=== PATIENT | male | born 1970 | race Hispanic/Latino ===

== ENCOUNTER 2017-08-26 13:23 | Emergency (ER) | payer SELFPAY ==
[~2017-08-26] VITALS: Ht 165.1 cm; Wt 72.6 kg
[~2017-08-26 13:23] MED LIST: DILANTIN100 MG ORAL; TRIPLA; UNOBMED
[2017-08-26 13:42] VITALS: BP 146/98
[2017-08-26 13:50] VITALS: BP 146/98
--- NOTE | 2017-08-27 16:59 | Cardiology Report ---
APPROVED REPORT EKG Measurement Heart [id number] Normal sinus rhythm Normal ECG
--- NOTE | 2017-08-29 20:46 | Emergency Room Report ---
History of Present Illness General Chief Complaint: Seizure Source: Patient, Medical Record Present Illness HPI This is a 47-year-old male brought in by EMS after witnessed seizure. Patient had prior history of seizure disorder. He had previously been on Keppra and Dilantin. Patient is admission for status epilepticus. The patient was noted to have poor compliance with medication regimen.The patient denies any current complaints. Allergies: Coded Allergies: No Known Allergies (Unverified , 01/04/14) Patient History Past Medical History: see triage record Reviewed Nursing Documentation: PMH: Agreed; PSxH: Agreed Nursing Documentation-PMH Past Medical History: No History, Except For Hx Cancer: No Hx Gastrointestinal Problems: No Hx Neurological Problems: Yes Hx Cerebrovascular Accident: Yes - Left sided weakness Hx Seizures: Yes Review of Systems All Other Systems: limited - by poor cooperation Physical Exam Vital Signs Date Time Temp Pulse Resp B/P (MAP) Pulse Ox O2 Delivery O2 Flow Rate FiO2 08/26/17 13:17 98.2 98 16 155/99 99 Room Air 98.2 General Appearance: well appearing, no apparent distress, alert Head: normocephalic, atraumatic ENT: hearing grossly normal, normal voice Neck: full range of motion, supple Respiratory: no respiratory distress, speaking full sentences Cardiovascular #1: regular rate, rhythm, no edema Musculoskeletal: no calf tenderness Neurologic: normal inspection, alert, oriented x3, normal gait, motor weakness - left upper extremity Psychiatric: mood/affect normal Skin: no rash Medical Decision Making Diagnostic Impression: Primary Impression: Seizure Additional Impressions: Epileptic seizure, generalized Scalp hematoma Minor head injury Seizure disorder ER Course Patient presented for seizure. Differential diagnosis included medication noncompliance, cysticercosis, electrolyte abnormality, mass lesion, or cranial hemorrhage. Because of complexity of patient's case laboratory testing and imaging studies were ordered. The patient was noted to have a recent seizure. The patient was noted to have initially been postictal. Patient subsequently was more awake and refused medical care. The patient stated he did not want any laboratories drawn or any anticonvulsants administered. At the time of refusal patient is awake alert and oriented. The patient appears to have capacity for refusal. The patient was advised he could return at any time. Last Vital Signs Date Time Temp Pulse Resp B/P (MAP) Pulse Ox O2 Delivery O2 Flow Rate FiO2 08/26/17 13:50 98.2 70 15 146/98 97 Room Air 98.2 Status: improved Disposition: AGAINST MEDICAL ADVICE Condition: Serious Referrals: NOT CHOSEN [facility]/MD,REFERRING (PCP) Patient Instructions: Seizure, Adult Sohan Garcia Aug 29, 2017 20:46
== END 2017-08-26 14:52 | disposition left against medical advice (07) ==
LOC: EDBD 13:23 → EMR 14:29
DX: G40.409 Other generalized epilepsy and epileptic syndromes, not intractable, without status epilepticus (principal); I69.354 Hemiplegia and hemiparesis following cerebral infarction affecting left non-dominant side; S00.03XA Contusion of scalp, initial encounter; X58.XXXA Exposure to other specified factors, initial encounter; Y92.9 Unspecified place or not applicable
CPT/HCPCS: 93005; 99283

== ENCOUNTER 2019-02-05 12:47 | Emergency (ER) | payer SELFPAY ==
[~2019-02-05] VITALS: Ht 167.6 cm; Wt 72.6 kg
[2019-02-05 13:00] VITALS: BP 128/97
[2019-02-05] MEDS ORDERED: Tetanus/Diptheria/Pertussis IM ONE (13:00)
--- NOTE | 2019-02-05 13:00 | NUR ---
ED Nurse Note: PT brought in by [place]IR from bus stop, pt had seizure activity x 1 witnessed by [employer], unk how long the sz activity was. noted pt with abrasion on top of the head, no bledding at this time. pt AA&ox4, gcs=15, skin warm and dry, resp even and unlabored on RA, -n/v, no urinary incontinence noted. pt states he takes dilantin for seizure. pt sinus estefany on teletypesetter monitor, will cont monitor. sz precaution and aspiration precaution initiated. bs=92 on scene.
--- NOTE | 2019-02-05 13:04 | NUR ---
ED Nurse Note: Patient awake, alert, oriented x 3. Patient refused to get into hospital gown. Seziure pad applied to both side rails. Bed in lowest position .
--- NOTE | 2019-02-05 13:29 | NUR ---
ED Nurse Note: pt off to ct/
[2019-02-05 13:30] LABS: HEMATOCRIT 40.5 % (42.0-52.0); HEMOGLOBIN 14.1 G/DL (14.2-18.0); MEAN CORPUSCULAR VOLUME 100 FL (80-99); PLATELET COUNT 95 K/UL (150-450); RED BLOOD COUNT 4.04 M/UL (4.70-6.10); RED CELL DISTRIBUTION WIDTH 11.7 % (11.6-14.8); WHITE BLOOD COUNT 6.8 K/UL (4.8-10.8)
[2019-02-05 13:52] LABS: ANION GAP 12 mmol/L (5-15); BLOOD UREA NITROGEN 15 mg/dL (7-18); CALCIUM 8.4 MG/DL (8.5-10.1); CARBON DIOXIDE 23 MMOL/L (21-32); CHLORIDE 107 MMOL/L (98-107); CREATININE 1.3 MG/DL (0.55-1.30); POTASSIUM 3.6 MMOL/L (3.5-5.1); SODIUM 141 MMOL/L (136-145)
[2019-02-05 13:56] LABS: ALANINE AMINOTRANSFERASE 27 U/L (12-78); ALBUMIN 3.8 G/DL (3.4-5.0); ALBUMIN/GLOBULIN RATIO 1.1 (1.0-2.7); ALKALINE PHOSPHATASE 114 U/L (46-116); ASPARTATE AMINO TRANSFERASE 20 U/L (15-37); BILIRUBIN,TOTAL 0.4 MG/DL (0.2-1.0)
[2019-02-05 14:00] VITALS: BP 119/63
--- NOTE | 2019-02-05 14:01 | NUR ---
ED Nurse Note: pt back from ct and resting at this time, will cont monitor. pt void by using urinal x1.
[2019-02-05] MEDS ORDERED: Phenytoin 1,000 MG in NS 275 ML IV ONE (14:15)
--- NOTE | 2019-02-05 14:39 | Emergency Room Report ---
History of Present Illness General Chief Complaint: Seizure Source: Patient, Medical Record, EMS (Doe Raya MD) Present Illness HPI 48-year-old male presents ED for evaluation. Status post seizure witnessed on street. Brought in by EMS. Postictal initially but is now becoming more awake alert. History of seizures and takes Dilantin. States he is compliant with the medication. Abrasion to his forehead from the fall. Denies pain. No incontinence. No tongue trauma. Denies drug use. No other aggravating relieving factors. Denies any other associated symptoms (Doe Raya MD) Allergies: Coded Allergies: No Known Allergies (Unverified , 01/04/14) Patient History Past Medical History: CVA/TIA, seizures Pertinent Family History: none Social History: Denies: smoking, alcohol use, drug use Immunizations: UTD Reviewed Nursing Documentation: PMH: Agreed; PSxH: Agreed (Doe Raya MD) Nursing Documentation-PMH Past Medical History: No History, Except For Hx Cancer: No Hx Gastrointestinal Problems: No Hx Neurological Problems: Yes Hx Cerebrovascular Accident: Yes - Left sided weakness Hx Seizures: Yes (Doe Raya MD) Review of Systems All Other Systems: negative except mentioned in HPI (Doe Raya MD) Physical Exam Vital Signs Date Time Temp Pulse Resp B/P (MAP) Pulse Ox O2 Delivery O2 Flow Rate FiO2 02/05/19 12:50 98.1 88 18 142/97 (112) 97 Room Air Sp02 EP Interpretation: reviewed, normal General Appearance: no apparent distress, GCS 15, non-toxic, Postictal Head: normocephalic, other - abrasion to apex of scalp Eyes: bilateral eye normal inspection, bilateral eye PERRL ENT: hearing grossly normal, normal pharynx, no angioedema, normal voice Neck: full range of motion, supple/symm/no masses Respiratory: chest non-tender, lungs clear, normal breath sounds, speaking full sentences Cardiovascular #1: regular rate, rhythm, no edema Cardiovascular #2: 2+ carotid (R), 2+ carotid (L), 2+ radial (R), 2+ radial (L) , 2+ dorsalis pedis (R), 2+ dorsalis pedis (L) Gastrointestinal: normal bowel sounds, non tender, soft, non-distended, no guarding, no rebound Rectal: deferred Genitourinary: normal inspection, no CVA tenderness Musculoskeletal: back normal, gait/station normal, normal range of motion, non- tender Neurologic: alert, oriented x3, responsive, motor strength/tone normal, sensory intact, speech normal Psychiatric: judgement/insight normal, memory normal, mood/affect normal, no suicidal/homicidal ideation Reflexes: 3+ bicep (R), 3+ bicep (L), 3+ tricep (R), 3+ tricep (L), 3+ knee (R) , 3+ knee (L) Lymphatic: no adenopathy (Doe Raya MD) Medical Decision Making Diagnostic Impression: Primary Impression: Seizure Additional Impression: Subtherapeutic serum dilantin level ER Course Patient was endorsed to me by Dr. Raya. Patient was loaded with IV Dilantin. Patient was given prescription for Dilantin. He was noted to be awake alert and oriented. He was able to ambulate. Patient was discharged home. Patient advised to follow-up with his primary care physician and to make sure that he is taking his medications. Laboratory Tests Test 02/05/19 13:21 02/05/19 14:20 White Blood Count 6.8 K/UL (4.8-10.8) Red Blood Count 4.04 M/UL (4.70-6.10) L Hemoglobin 14.1 G/DL (14.2-18.0) L Hematocrit 40.5 % (42.0-52.0) L Mean Corpuscular Volume 100 FL (80-99) H Mean Corpuscular Hemoglobin 34.9 PG (27.0-31.0) H Mean Corpuscular Hemoglobin Concent 34.7 G/DL (32.0-36.0) Red Cell Distribution Width 11.7 % (11.6-14.8) Platelet Count 95 K/UL (150-450) L Mean Platelet Volume 9.5 FL (6.5-10.1) Neutrophils (%) (Auto) % (45.0-75.0) Lymphocytes (%) (Auto) % (20.0-45.0) Monocytes (%) (Auto) % (1.0-10.0) Eosinophils (%) (Auto) % (0.0-3.0) Basophils (%) (Auto) % (0.0-2.0) Differential Total Cells Counted 100 Neutrophils % (Manual) 64 % (45-75) Lymphocytes % (Manual) 26 % (20-45) Monocytes % (Manual) 6 % (1-10) Eosinophils % (Manual) 4 % (0-3) H Basophils % (Manual) 0 % (0-2) Band Neutrophils 0 % (0-8) Platelet Estimate Decreased L Platelet Morphology Normal Red Blood Cell Morphology Normal Macrocytosis Sodium Level 141 MMOL/L (136-145) Potassium Level 3.6 MMOL/L (3.5-5.1) Chloride Level 107 MMOL/L (98-107) Carbon Dioxide Level 23 MMOL/L (21-32) Anion Gap 12 mmol/L (5-15) Blood Urea Nitrogen 15 mg/dL (7-18) Creatinine 1.3 MG/DL (0.55-1.30) Estimate Glomerular Filtration Rate 59.4 mL/min (>60) Glucose Level 100 MG/DL (74-106) Calcium Level 8.4 MG/DL (8.5-10.1) L Total Bilirubin 0.4 MG/DL (0.2-1.0) Aspartate Amino Transferase (AST) 20 U/L (15-37) Alanine Aminotransferase (ALT) 27 U/L (12-78) Alkaline Phosphatase 114 U/L (46-116) Total Protein 7.3 G/DL (6.4-8.2) Albumin 3.8 G/DL (3.4-5.0) Globulin 3.5 g/dL Albumin/Globulin Ratio 1.1 (1.0-2.7) Salicylates Level < 0.2 ug/mL (2.8-20) L Acetaminophen Level < 2 MCG/ML (10-30) L Phenytoin (Dilantin) Level 0.5 ug/mL (10-20) L Serum Alcohol < 3 mg/dL Urine Opiates Screen Negative (NEGATIVE) Urine Barbiturates Screen Negative (NEGATIVE) Phencyclidine (PCP) Screen Negative (NEGATIVE) Urine Amphetamines Screen Negative (NEGATIVE) Urine Benzodiazepines Screen Negative (NEGATIVE) Urine Cocaine Screen Negative (NEGATIVE) Urine Marijuana (THC) Screen Negative (NEGATIVE) (Sohan Garcia MD) Last Vital Signs Date Time Temp Pulse Resp B/P (MAP) Pulse Ox O2 Delivery O2 Flow Rate FiO2 02/05/19 13:00 98.1 88 18 128/97 100 Room Air (Doe Raya MD) Status: improved (Sohan Garcia MD) Disposition: HOME, SELF-CARE Condition: Stable Scripts Phenytoin Sodium Extended* (DILANTIN*) 100 Mg Capsule 100 MG ORAL THREE TIMES A DAY, #90 CAP 0 Refills Prov: Sohan Garcia MD 02/05/19 Referrals: NOT CHOSEN [facility]/,REFERRING (PCP) Doe Raya MD Feb 05, 2019 14:39 Sohan Garcia MD Feb 05, 2019 15:27
--- NOTE | 2019-02-05 14:50 | Diagnostic Imaging Report ---
Indication: Seizure Technique: Contiguous 5 mm thick transaxial imaging of the head obtained in a Siemens Sensation [address] scanner. Soft tissue and bone windows generated. Automatic Exposure Control was utilized. Total Dose length Product (DLP): 1888.[address] Dose Index Volume (CTDIvol): 75.3 mGy Comparison: 01/04/2014 Findings: The size and configuration of the cortical sulci, basal cisterns, and ventricles are within normal limits for age. There is no mass effect, midline shift, or edema identified. There is no evidence of acute hemorrhage or abnormal intra-axial or extra-axial fluid collections. The bones and soft tissues are unremarkable. Impression: No mass effect, edema or acute bleed. The CT scanner at [facility] is accredited by the [employer] and the scans are performed using dose optimization techniques as appropriate to a performed exam including Automatic Exposure control.
[2019-02-05] MEDS ORDERED: DILANTIN100 MG ORAL (15:23)
[2019-02-05 15:40] VITALS: BP 116/68
--- NOTE | 2019-02-05 15:40 | NUR ---
ED Nurse Note: pt cleared to be d/c per ERMD, pt discharge and aftercare instruction provided w/ prescription sent to pharmacy, verified w/ pt regarding his pharmacy, dilantin infused, iv d/c and id band removed, pt education done via discussion and handout, pt advised to follow up with pcp or return to ed if changes in condition, vss, ambulatory w/ steady gait, pt left w/ all belongings, pt states he will be taking bus home, pt education done regarding med compliance as well.
== END 2019-02-05 15:40 | disposition home or self-care (01) ==
LOC: EDBD 12:47 → EMR 13:06
DX: G40.909 Epilepsy, unspecified, not intractable, without status epilepticus (principal); S00.81XA Abrasion of other part of head, initial encounter; I69.854 Hemiplegia and hemiparesis following other cerebrovascular disease affecting left non-dominant side; R89.2 Abnormal level of other drugs, medicaments and biological substances in specimens from other organs, systems and tissues; W18.39XA Other fall on same level, initial encounter; Y92.410 Unspecified street and highway as the place of occurrence of the external cause; Z23 Encounter for immunization
CPT/HCPCS: 36415; 70450; 80053; 80185; 80307; 82962; 85007; 85025; 90471; 90715; 96361; 96365; 99284; G0480; J1165; J7040; J7050; 80329